=== PATIENT | female | born 1985 | race African-American/Black ===

== ENCOUNTER 2018-09-09 14:40 | Emergency (ER) | payer OTHER ==
[~2018-09-09] VITALS: Ht 170.2 cm; Wt 74.8 kg
[2018-09-09 14:55] VITALS: BP 140/74
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
--- NOTE | 2018-09-09 15:35 | RAD ---
EXAM: LEFT KNEE, 4 VIEWS. HISTORY: Left knee pain. Fall. COMPARISON: None. FINDINGS: No fractures are identified. Joint spaces are maintained. Alignment is normal. There is no joint effusion. IMPRESSION: 1. No fracture or joint effusion. Electronically signed by: Randy Childs MD (09/09/2018 3:32 PM) [place] [id number]
== END 2018-09-09 15:47 | disposition home or self-care (01) ==
LOC: ER 14:40
DX: S80.02XA Contusion of left knee, initial encounter (principal); Z90.89 Acquired absence of other organs; W10.9XXA Fall (on) (from) unspecified stairs and steps, initial encounter; Y93.89 Activity, other specified; Y92.89 Other specified places as the place of occurrence of the external cause; Y99.0 Civilian activity done for income or pay
CPT/HCPCS: 73564; 99283

== ENCOUNTER 2018-09-11 00:40 | Emergency (ER) | payer OTHER ==
[~2018-09-11] VITALS: Ht 170.2 cm; Wt 74.8 kg
[2018-09-11 01:00] VITALS: BP 112/79
--- NOTE | 2018-09-11 01:50 | PHYS DOC ---
Past Medical History Past Medical History: Endometriosis Past Surgical History: Appendectomy, Other Additional Past Surgical Histo: ENDOMETRIOSIS Alcohol Use: Occasionally Drug Use: None Adult General Chief Complaint Chief Complaint: HEAD INJURY/TRAUMA HPI HPI Patient is a 33-year-old female who presents with complaint of headache that she rates a 4 out of 10. Patient states that while she was at work she was dealing with a combative CAD and she had fallen and hit the back of her head against the wall. She denies having had any loss of consciousness and states that she has had no nausea or vomiting. She denies any dizziness or visual changes. She states that there are no alleviating or aggravating factors. Review of Systems Review of Systems Constitutional: Denies fever or chills [] Eyes: Denies change in visual acuity, redness, or eye pain [] Respiratory: Denies cough or shortness of breath [] Cardiovascular: No additional information not addressed in HPI [] GI: Denies abdominal pain, nausea, vomiting [] Neurologic: Complains of headache without focal weakness or sensory changes [] Current Medications Current Medications Current Medications Medications (Trade) Dose Ordered Sig/Miriam Start Time Stop Time Status Last Admin Dose Admin Ketorolac Tromethamine (Toradol Im) 60 mg 1X ONCE 09/11/18 02:00 09/11/18 02:01 Allergies Allergies Allergies Coded Allergies Type Severity Reaction Last Updated Verified diphenhydramine Allergy Intermediate 09/11/18 Yes Physical Exam Physical Exam Constitutional: Well developed, well nourished, no acute distress, non-toxic appearance. [] HENT: Normocephalic, atraumatic, bilateral external ears normal, oropharynx moist, no oral exudates, nose normal. [] Eyes: PERRLA, EOMI, conjunctiva normal, no discharge. [] Neck: Normal range of motion, no tenderness, supple, no stridor. [] Cardiovascular: Regular rate and rhythm[] Lungs & Thorax: Bilateral breath sounds clear to auscultation [] Neurologic: Alert and oriented X 3, no focal deficits noted. [] Current Patient Data Vital Signs Vital Signs Date Time Temp Pulse Resp B/P (MAP) Pulse Ox O2 Delivery O2 Flow Rate FiO2 09/11/18 01:00 98.7 94 16 112/79 (90) 100 Room Air 98.7 EKG EKG [] Radiology/Procedures Radiology/Procedures [] Course & Med Decision Making Course & Med Decision Making Pertinent Labs and Imaging studies reviewed. (See chart for details) [] Dragon Disclaimer Dragon Disclaimer This electronic medical record was generated, in whole or in part, using a voice recognition dictation system. Departure Departure Impression: Primary Impression: Acute headache Disposition: HOME, SELF-CARE Condition: STABLE Referrals: NO PCP (PCP) Patient Instructions: Headache, FAQs Problem Qualifiers Primary Impression: Acute headache Headache type: post-traumatic Intractability: not intractable Qualified Codes: G44.319 - Acute post-traumatic headache, not intractable MAHAD GOETZ Jr. DO Sep 11, 2018 01:50
[2018-09-11] MEDS ORDERED: KETOROLAC 60 MG/2 ML VIAL. IM ONE (02:00)
== END 2018-09-11 02:40 | disposition home or self-care (01) ==
LOC: ER 00:40
DX: G44.319 Acute post-traumatic headache, not intractable (principal); Z88.5 Allergy status to narcotic agent
CPT/HCPCS: 96372; 99283; J1885

== ENCOUNTER 2019-08-29 19:58 | Emergency (ER) | payer OTHER ==
[~2019-08-29] VITALS: Ht 170.2 cm; Wt 75.0 kg
[2019-08-29 20:25] VITALS: BP 169/83
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
== END 2019-08-29 21:00 | disposition home or self-care (01) ==
LOC: ER 19:58
DX: S60.811A Abrasion of right wrist, initial encounter (principal); L53.9 Erythematous condition, unspecified; Z90.89 Acquired absence of other organs; Z98.890 Other specified postprocedural states; Z88.8 Allergy status to other drugs, medicaments and biological substances; Y08.89XA Assault by other specified means, initial encounter; Y93.89 Activity, other specified; Y92.89 Other specified places as the place of occurrence of the external cause; Y99.8 Other external cause status
CPT/HCPCS: 99281